=== PATIENT | male | born 1960 | race Two or more races ===

== ENCOUNTER 2020-05-06 14:16 | Outpatient (RCR) | payer MEDICARE, SELFPAY ==
[2020-05-06] MEDS: COVID-19 VACC, MRNA(PFIZER)/PF 30 MCG/0.3 ML SYRINGE IM (13:23)
[2020-05-27] MEDS: COVID-19 VACC, MRNA(PFIZER)/PF 30 MCG/0.3 ML SYRINGE IM (13:10)
== END 2020-07-29 23:59 ==
LOC: IMMUN 14:16
PROVIDERS: Visit Provider Family Medicine
DX: Z23 Encounter for immunization (principal)
CPT/HCPCS: 0001A; 0002A; 91300